=== PATIENT | female | born 1950 | race American Indian/Alaskan Native ===

== ENCOUNTER 2016-07-15 05:59 | Inpatient (IN) | payer OTHER ==
[2016-07-04 11:37] LABS: Basophils % (Auto) 0.8 % (0.0-1.8); Eosinophils % (Auto) 4.7 % (0.0-4.3); Hematocrit 35.2 % (30.3-42.9); Hemoglobin 10.8 gm/dl (10.1-14.3); Mean Corpuscular HGB Conc 31 % (30-34); Mean Corpuscular Volume 75 fl (79-97); Platelet Count 366 K/mm3 (140-440); Red Blood Count 4.72 M/mm3 (3.65-5.03); Red Cell Distribution Width 19.1 % (13.2-15.2); White Blood Count 8.6 K/mm3 (4.5-11.0)
--- NOTE | 2016-07-04 11:38 | Anesthesia Consultation ---
Anesthesia Consult and Med Hx Date of service: 07/15/16 - Airway ROM Head & Neck: Adequate Mental/Hyoid Distance: Adequate Mallampati Class: Class I Intubation Access Assessment: Good - Pulmonary Exam CTA: Yes - Cardiac Exam Cardiac Exam: RRR - Pre-Operative Health Status ASA Pre-Surgery Classification: ASA3 Proposed Anesthetic Plan: General - Pulmonary Hx Asthma: Yes (seasonal ) Hx Pneumonia: Yes - Cardiovascular System Hx Hypertension: Yes (10YRS) Hx Angina: Yes (CP AND SOB WITH ACTIVITY) Hx Cardia Arrhythmia: Yes (states has irregular tachy rhythm) Hx Heart Murmur: No - Endocrine Hx Non-Insulin Dependent Diabetes: Yes - Hematic Hx Anemia: Yes - Other Systems Hx Cancer: Yes Hx Obesity: Yes - Additional Comments Anesthesia Medical History Comments: Fibromyalgia
[2016-07-04 11:39] LABS: Mean Corpuscular Hemoglobin 23 pg (28-32)
[2016-07-04 11:54] LABS: Alanine Aminotransferase 10 units/L (7-56); Albumin 3.3 g/dL (3.9-5); Albumin/Globulin Ratio 0.8 %; Alkaline Phosphatase 101 units/L (35-129); Anion Gap 16 mmol/L; Bilirubin,Total 0.3 mg/dL (0.1-1.2); Blood Urea Nitrogen 8 mg/dL (7-17); Calcium 8.7 mg/dL (8.4-10.2); Carbon Dioxide 25 mmol/L (22-30); Chloride 99.2 mmol/L (98-107); Glucose 107 mg/dL (65-100); Potassium 3.9 mmol/L (3.6-5.0); Sodium 136 mmol/L (137-145); Total Protein 7.2 g/dL (6.3-8.2)
--- NOTE | 2016-07-12 14:38 | Admit Criteria Form ---
Admission Criteria Documentation: AMBULATORY SURGERY EXCEPTION CRITERIA Ambulatory Surgery Exception Criteria ( Place 'X' for any and all applicable criteria): Surgery or procedure performed on ambulatory basis may require inpatient stay for[A] ANY ONE of the following(1)(2)(3)(4)(5)(6)(7)(8)(9): [] I. A preoperative situation, condition, or finding that warrants inpatient stay as indicated by ANY ONE of the following: [] a) Inpatient care needed because of severity of a disease or condition rather than the surgery (eg, severe cardiac or respiratory disease, severe infection) (15) (16 ) (17) (18) [] b) Emergent procedure (eg, angioplasty for acute ischemia)(19) [] c) Complex surgical approach or situation as indicated by ANY ONE of the following(3): [] i) Open approach needed instead of usual endoscopic, transcatheter, or other less invasive procedure [] ii) Difficult approach because of previous operation [] iii) Airway monitoring required after open neck procedures(20)(21) [] iv) Large mass requiring unusually extensive dissection [] v) Additional complicating feature requiring inpatient care (eg, drain management)(22(23): [X] d) Major surgery in a pt with high anesthetic risk as indicated by ANY ONE of the following (2)(3)(5)(7)(8): [X] i) ASA risk class III or higher (severe systemic disease impairing function) [D] [] ii) Advanced age (eg, older than 85 years)(14)(24) [] iii) Symptomatic heart failure(25) [] iv) Symptomatic asthma or COPD(8)(21) [] v) Morbid obesity with hemodynamic or respiratory problems(20)( 21)(26)(27) [] vi) Obstructive sleep apnea(20)(21) [] vii) Former premature infants who are younger than 60 weeks [] viii) High risk for severe postoperative abnormalities (eg, severe postoperative hypocalcemia after parathyroidectomy for severe hyperparathyroidism)(27)( 28) [] ix) Unstable angina(25) [] e) Drug-related risk requiring inpatient stay as indicated by ANY ONE of the following(5)(10)(14)(32)(33) [] i) Procedure requires discontinuing drugs or other therapy (eg , antiarrhythmic medication, antiseizure medication), which necessitates inpatient observation or treatment.(18)(31) [] ii) Major surgery and high risk drug use as indicated by ANY ONE of the following: [] 1) Active abuse of cocaine or similar drug [] 2) Monoamine oxidase inhibitor use [] 3) Other drug identified as posing risk [] f) Inadequate outpatient care situation as indicated by ANY ONE of the following(5)(10)(14)(32)(33) [] i) Patient lives remote from medical facility and procedure has urgent complication potential, and temporary nearby residence cannot be arranged [] ii) Patient will have postprocedure incapacitation and inadequate assistance at home, or alternative level of care cannot be arranged. [] iii) Patient will have long general anesthesia or procedure side effect resolution time, and competent person to stay with patient on first postoperative night at home or alternative level of care cannot be arranged. []iv) Other inadequate outpatient situation that cannot be handled by other means [] II. A perioperative event, condition, or finding that warrants inpatient stay as indicated by ANY ONE of the following (1)(2)(3): [] a) Inadequate physiologic recovery: cardiovascular, respiratory, or hemodynamic status not normal or near preoperative baseline(18) [] b) Hemodynamic instability [] c) Patient not alert with near normal or baseline mental status [] d) Temperature not normal or as expected and not appropriate for outpatient treatment of condition [] e) Ambulatory or appropriate activity level status not yet achieved post procedure [E](34)(35)(36) [] f) Operative site not appropriate (eg, unexpected or excessive drainage or bleeding) [] g) Postoperative effects not resolved or adequately managed (eg, significant pain or vomiting not appropriate for outpatient or next level of care)(10)(12) [] h) Complicating features requiring inpatient care as indicated by ANY ONE of the following(37): [] i) Severe complications of procedure (eg, bowel injury, airway compromise, vascular injury,severe hemorrhage) [] ii) Extensive (eg, dissection far beyond usual scope of procedure ) or prolonged (eg, 120 minutes beyond usual) surgery needed requiring inpatient postoperative care [] iii) Conversion to an open or complex procedure that requires inpatient care (eg, open vs laparoscopic cholecystectomy, abdominal vs vaginal hysterectomy)(38) [] iv) Comorbid condition or test result identified during or post procedure that requires inpatient care (7) [] v) Malignant hyperthermia(30) [] vi) Other complicating feature requiring inpatient care(22)(23) Inpatient stay may be needed until ALL of the following are present (1)(2)(3)(4) (5)(6)(10)(14)(33)(40): []a) Physiologic recovery: cardiovascular, respiratory, and hemodynamic status normal or near preoperative baseline []b) Hemodynamic stability []c) Patient alert, with near normal or baseline mental status []d) Temperature appropriate: patient afebrile or temperature appropriate for outpt treatment of condition []e) Activity level appropriate: ambulatory or appropriate activity level post procedure []f) Operative site appropriate as indicated by ALL of the following: []i) Site dry or with expected drainage []ii) Any blood noted is as expected for procedure. []g) Postoperative effects resolved or managed as indicated by ALL of the following: []i) Pain management appropriate for outpatient (or next level of) care(10) []ii) Minimal nausea and vomiting: if present, successfully treated with oral medication(12) []iii) Headache, dizziness, or drowsiness (if present) are mild. []h) Voiding status acceptable as indicated by ANY ONE of the following: []i) Voiding spontaneously []ii) No voiding but instructions given for follow-up in 6 to 8 hours []iii) Urinary catheter in place, and instructions given for follow-up []i) Complicating features requiring inpatient care manageable at a lower level of care(37) []j) Comorbid conditions manageable at a lower level of care(37) The original [employer] content created by [employer] has been revised. The portions of the content which have been revised are identified through the use of italic text or in bold, and [employer] has neither reviewed nor approved the modified material. All other unmodified content is copyright [employer]. Please see references footnoted in the original [employer] edition 2016 Admission Criteria Met: Yes
[~2016-07-15 05:59] MED LIST: NACL 0.9% 1000 ML 1,000 ML IV SCH; PEPCID IV NR; VERSED IV NR
[2016-07-15] MEDS ORDERED: TRANSDERM-SCOP TD NR (07:00)
--- NOTE | 2016-07-15 07:01 | Anesthesia Day of Surgery ---
Anesthesia Day of Surgery - Day of Surgery Patient Examined: Yes Patient H&P Reviewed: Yes Patient is NPO: Yes Beta Blockers: Yes Cardiac Clearance: Yes Pulmonary Clearance: No
[2016-07-15] MEDS ORDERED: MARCAINE-EPI 0.5%-1:200,000 INFILTRATI ONE ×2 (07:03→08:12)
[2016-07-15] MEDS ORDERED: XYLOCAINE 1% 20 mL ONE (07:03)
[2016-07-15] MEDS ORDERED: DIPRIVAN 10 MG/ML IV ONE ×2 (07:12→07:35)
[2016-07-15] MEDS ORDERED: SUBLIMAZE ONE (07:12)
[2016-07-15] MEDS ORDERED: DECADRON ONE ×2 (07:12→07:43)
[2016-07-15] MEDS ORDERED: XYLOCAINE MPF 2% ONE (07:12)
[2016-07-15] MEDS ORDERED: ANCEF/STERILE WATER 2 GM/20 ML IV NR (07:25)
[2016-07-15] MEDS ORDERED: FLAGYL 500 MG/100 ML 500 MG/100 ML BAG IV NR (07:25)
[2016-07-15] MEDS ORDERED: PROAIR IH ONE (07:39)
[2016-07-15] MEDS ORDERED: ZOFRAN ONE ×2 (07:44→08:51)
[2016-07-15] MEDS ORDERED: ZOFRAN IV PRN ×2 (08:00→09:51)
[2016-07-15] MEDS ORDERED: DILAUDID ONE (08:06)
[2016-07-15] MEDS ORDERED: XYLOCAINE 1% 20 mL INFILTRATI ONE (08:12)
[2016-07-15] MEDS ORDERED: NACL 0.9% IR ONE ×2 (08:12)
[2016-07-15] MEDS ORDERED: NORMODYNE IV ONE (08:39)
[2016-07-15] MEDS ORDERED: ePHEDrine SULFATE ONE (08:42)
[2016-07-15] MEDS ORDERED: NACL 0.9% 1000 ML 1,000 ML ONE (08:48)
[2016-07-15] MEDS ORDERED: ROBINUL ONE (08:50)
[2016-07-15] MEDS ORDERED: NEOSTIGMINE ONE (08:51)
[2016-07-15] MEDS ORDERED: DILAUDID IV PRN (09:00)
[2016-07-15] MEDS ORDERED: MYLICON PO PRN (09:51)
[2016-07-15] MEDS ORDERED: APRESOLINE IV PRN (09:51)
--- NOTE | 2016-07-15 09:55 | Operative Report ---
Operative Report Operative Report: Operative Report DATE OF PROCEDURE: 07/16/16 PREOPERATIVE DIAGNOSES: Morbid obesity, hiatal hernia POSTOPERATIVE DIAGNOSES: 1.same as pre-op SURGEON: Joyce Bacon M.D. KENNEL HAND: Jitendra Ni MD PROCEDURE: 1. laparoscopic sleeve gastrectomy 2. laparoscopic hiatal hernia repair 3. EGD ANESTHESIA: General. ESTIMATED BLOOD LOSS: <5 mL. COMPLICATIONS: None. SPECIMEN: Partial gastrectomy. FINDINGS: 1. hiatal hernia INDICATION FOR PROCEDURE: Patient is a 66-year-old female with a long history of morbid obesity. She has tried multiple efforts at weight loss without longitudinal float operator success. She is here today for sleeve gastrectomy. PROCEDURE IN DETAIL: After consent was reviewed, patient was taken back to the operating room, where patient was placed supine on the bed with both arms out. The patient's legs were doubly strapped to the bed. Patient had a foot board in place. Patient had a body warmer placed by anesthesia. Patient was then prepped and draped in normal sterile surgical fashion. After a time-out was called. Prior to incision an EGD was performed that showed a normal esophagus, stomach and duodenum with the exception of a small hiatal hernia. I made a stab incision in the umbilicus and placed a Veress needle through this incision and insufflated the abdomen to 18 mmHg pressure. I then counted down a handsbreadth below the xiphoid process in the midline and slightly left lateral injected local anesthetic and made about 1.5 cm transverse incision. I then used a 12-mm Optiview trocar to enter into the abdomen. I then placed a 45-degree scope through this port and inspected the abdomen. There was no injury on entry of the abdomen. I then placed two 5-mm ports in the right upper quadrant, one along the anterior axillary line and 1 subxiphoid below the costovertebral angle. I then placed a 15-mm port about a handsbreadth left lateral and inferior to my anterior axillary port. I then placed left upper quadrant port along the anterior axillary line in a similar fashion. I then placed the liver retractor through the subxiphoid port and placed the patient in full reverse Trendelenburg. The right and left crura were skeletonized accentuating a small hiatal hernia. An anterior cruraplasty was perfromed with a figure-of-8 stitch using surgidac suture to reapproximate the crura. I then identified the pylorus and then counted off 6cm from the pylorus. I then used a LigaSure cutting device to enter into the lesser sac. At that point and then I took down the short gastrics all the way up to the left harjit. Then I had anesthesia pass down a 36-Egyptian bougie along the lesser curvature of the stomach. I made sure everything else was out of the abdomen except the bougie. I then created my gastric sleeve using a 60-mm laparoscopic stapler. A green load, followed by gold and then blue loads. The sleeve looked good without any twisting or torsion. I then had anesthesia to remove the bougie. Hemostasis was obtained along the staple line. I then used Tiseel along the entirety of the staple line and some on the liver. I then removed liver grasper and took it off the field. I then removed the stomach through the 15-mm port. I then closed that fascia with a #1 PDS in a [id number] fashion using a Victoriano-Ella. I then desufflated the abdomen and then removed all port sites. I then closed the incisions with 4-0 Monocryl in subcuticular fashion. I then dressed the wounds with Dermabond. Patient tolerated the procedure well and was transferred to recovery room in good and stable condition.
[2016-07-15] MEDS ORDERED: D50W (25GM) IV PRN (09:59)
[2016-07-15] MEDS ORDERED: ANCEF/NS 1 GM/50 ML 1 GM/50 ML BAG IV SCH (10:00)
[2016-07-15] MEDS: SUBLIMAZE IV PRN ×2 (10:05→10:25)
[2016-07-15] MEDS ORDERED: WATER FOR IRRIG STERILE IR ONE (10:39)
--- NOTE | 2016-07-15 10:56 | Post Anesthesia Evaluation ---
- Post Anesthesia Evaluation Patient Participated: Yes Airway Patent: Yes Stable Respiratory Function: Yes Nausea/Vomiting: No Temp > 96.8F: Yes Pain Manageable: Yes Adequeate Hydration: Yes Anesthesia Complications: No Block Receding Appropriately: Not Applicable Patient on Ventilator: No
[2016-07-15] MEDS: TORADOL IV SCH ×3 (11:41→22:00)
[2016-07-15] MEDS: LOVENOX SUB-Q SCH (11:42)
[2016-07-15] MEDS: DILAUDID IV PRN ×2 (12:07→21:07)
[2016-07-15] MEDS: FLAGYL 500 MG/100 ML 500 MG/100 ML BAG IV SCH ×2 (13:50→21:05)
[2016-07-15] MEDS: LACTATED RINGERS 1,000 ML IV SCH (14:57)
[2016-07-16] MEDS: DILAUDID IV PRN (01:12)
[2016-07-16] MEDS: TORADOL IV SCH (04:55)
[2016-07-16] MEDS: LACTATED RINGERS 1,000 ML IV SCH (04:59)
[2016-07-16] MEDS: FLAGYL 500 MG/100 ML 500 MG/100 ML BAG IV SCH (05:02)
[2016-07-16] MEDS ORDERED: NORCO PO PRN (06:00)
[2016-07-16] MEDS: LOVENOX SUB-Q SCH (09:50)
[2016-07-16 10:44] LABS: Basophils % (Auto) 0.2 % (0.0-1.8); Hematocrit 31.4 % (30.3-42.9); Hemoglobin 9.5 gm/dl (10.1-14.3); Mean Corpuscular HGB Conc 30 % (30-34); Mean Corpuscular Volume 75 fl (79-97); Platelet Count 346 K/mm3 (140-440); Red Blood Count 4.21 M/mm3 (3.65-5.03); White Blood Count 13.2 K/mm3 (4.5-11.0)
[2016-07-16 10:45] LABS: Mean Corpuscular Hemoglobin 23 pg (28-32); Red Cell Distribution Width 20.2 % (13.2-15.2)
[2016-07-16 11:06] LABS: Alanine Aminotransferase 21 units/L (7-56); Albumin 3.4 g/dL (3.9-5); Alkaline Phosphatase 97 units/L (35-129); Anion Gap 16 mmol/L; Bilirubin,Total 0.2 mg/dL (0.1-1.2); Blood Urea Nitrogen 12 mg/dL (7-17); Calcium 8.5 mg/dL (8.4-10.2); Carbon Dioxide 21 mmol/L (22-30); Chloride 105.5 mmol/L (98-107); Glucose 113 mg/dL (65-100); Potassium 3.7 mmol/L (3.6-5.0); Sodium 139 mmol/L (137-145); Total Protein 6.9 g/dL (6.3-8.2)
[2016-07-16 12:15] VITALS: BP 122/72
--- NOTE | 2016-07-16 12:15 | Discharge Summary ---
Providers - Providers Date of Admission: 07/15/16 05:59 Date of discharge: 07/16/16 Attending physician: BISHNU GARCIA Primary care physician: SAGE PALMA Hospitalization Reason for admission: Post op Observation Condition: Stable Procedures: Lap Sleeve Gastrectomy Disposition: DISCHARGED TO HOME OR SELFCARE Core Measure Documentation - Palliative Care Palliative Care/ Comfort Measures: Not Applicable - Core Measures Any of the following diagnoses?: none Exam - Physical Exam Narrative exam: NAD Lungs CTA BL Heart RRR Abd Soft, ND, Wounds c/d/i. appropriate incisional TTP AAOX3 - Constitutional Vitals: Temp Pulse Resp BP Pulse Ox 97.9 F 97 H 18 119/75 97 07/16/16 07:00 07/16/16 07:00 07/16/16 07:00 07/16/16 07:00 07/16/16 09:43 Plan Activity: advance as tolerated Diet: other (bariatric stage 1) Wound: keep clean and dry Special Instructions: no heavy lifting Follow up with: SAGE PALMA MD [Primary Care Provider] - 7 Days
== END 2016-07-16 12:45 | disposition home or self-care (01) | DRG 327 ==
LOC: 3A 05:59 → 2B-SURG 11:01
PROVIDERS: ADMIT Surgery; ATTEND Surgery
PROC: 0BQS4ZZ (ICD-10-PCS; principal; 2016-07-15)
PROC: 0BQR4ZZ (ICD-10-PCS; 2016-07-15)
PROC: 0DB64Z3 Excision of Stomach, Percutaneous Endoscopic Approach, Vertical (ICD-10-PCS; 2016-07-15)
DX: K44.9 Diaphragmatic hernia without obstruction or gangrene (principal); Z68.41 Body mass index [BMI] 40.0-44.9, adult; E66.01 Morbid (severe) obesity due to excess calories; J45.909 Unspecified asthma, uncomplicated; I10 Essential (primary) hypertension; E11.9 Type 2 diabetes mellitus without complications; Z71.3 Dietary counseling and surveillance; Z87.01 Personal history of pneumonia (recurrent)
CPT/HCPCS: 36415; 80053; 82962; 85025; 88307; A4217; C9250; J0360; J0690; J1100; J1170; J1650; J1885; J2250; J2405; J2704; J2710; J3010; J7030; J7120

== ENCOUNTER 2017-09-24 12:07 | Outpatient (CLI) | payer MEDICARE, OTHER | END 2017-09-24 12:08 | disposition home or self-care (01) | LOC: VAS 12:07 | PROVIDERS: ATTEND Podiatrist Foot & Ankle Surgery | DX: M79.661 Pain in right lower leg (principal); M79.89 Other specified soft tissue disorders; J45.909 Unspecified asthma, uncomplicated; I10 Essential (primary) hypertension; E11.9 Type 2 diabetes mellitus without complications; D64.9 Anemia, unspecified; Z90.710 Acquired absence of both cervix and uterus; Z82.49 Family history of ischemic heart disease and other diseases of the circulatory system ==

== ENCOUNTER 2018-07-10 13:15 | Emergency (ER) | payer MEDICARE, OTHER ==
--- NOTE | 2018-07-10 13:39 | Emergency Department Report ---
Chief Complaint: Abdominal Pain Stated Complaint: RT SIDE PAIN/STOMACH PAIN Time Seen by Provider: 07/10/18 13:34 - HPI History of Present Illness: This is a 68 y.o. female that presents to the ER with right flank and back pain since this morning. Admits to vomiting earlier. Denies diarrhea, urinary frequency, urgency, and dysuria. - Exam Vital Signs: Vital Signs 07/10/18 13:28 Temperature 98.5 F Pulse Rate 110 H Respiratory 16 Rate Blood Pressure 152/82 O2 Sat by Pulse 97 Oximetry MSE screening note: Focused history and physical exam performed. Due to findings the following was ordered: labs and CT of abdomen and pelvis. ACC for further evaluation. ED Disposition for MSE Condition: Stable Instructions: Abdominal Pain (ED)
[2018-07-10 14:13] LABS: Basophils # (Auto) 0.1 K/mm3 (0.0-0.1); Basophils % (Auto) 0.6 % (0.0-1.8); Eosinophils # (Auto) 0.5 K/mm3 (0.0-0.4); Eosinophils % (Auto) 6.1 % (0.0-4.3); Hematocrit 39.5 % (30.3-42.9); Hemoglobin 12.8 gm/dl (10.1-14.3); Lymphocytes # (Auto) 1.8 K/mm3 (1.2-5.4); Lymphocytes % (Auto) 20.5 % (13.4-35.0); Mean Corpuscular HGB Conc 32 % (30-34); Mean Corpuscular Hemoglobin 28 pg (28-32); Mean Corpuscular Volume 86 fl (79-97); Monocytes # (Auto) 0.8 K/mm3 (0.0-0.8); Monocytes % (Auto) 9.5 % (0.0-7.3); Platelet Count 283 K/mm3 (140-440); Red Blood Count 4.59 M/mm3 (3.65-5.03); Red Cell Distribution Width 16.1 % (13.2-15.2)
[2018-07-10] MEDS ORDERED: MORPHINE IV ONE (14:22)
[2018-07-10] MEDS ORDERED: NACL 0.9% 1000 ML 1,000 ML IV ONE ×2 (14:22→17:22)
[2018-07-10] MEDS ORDERED: ZOFRAN IV ONE (14:22)
[2018-07-10 14:34] LABS: Alanine Aminotransferase 10 units/L (7-56); Albumin 3.4 g/dL (3.9-5); BUN/Creatinine Ratio 11; Blood Urea Nitrogen 12 mg/dL (7-17); Calcium 9.4 mg/dL (8.4-10.2); Hemolysis Index 16
[2018-07-10 14:49] LABS: Bacteria,Urine 4+ /HPF (Negative); Bilirubin,Urine NEG (Negative); Blood,Urine MOD (Negative); Color,Urine Yellow (Yellow); Mucus,Urine FEW /HPF; Protein,Urine <15 mg/dL mg/dL (Negative); Urobilinogen,Urine < 2.0 mg/dL (<2.0)
--- NOTE | 2018-07-10 15:01 | Emergency Department Report ---
ED Abdominal Pain HPI - General Chief Complaint: Abdominal Pain Stated Complaint: RT SIDE PAIN/STOMACH PAIN Time Seen by Provider: 07/10/18 13:34 Source: patient Mode of arrival: Ambulatory Limitations: No Limitations - History of Present Illness Initial Comments: 68 y/o -[place] female presents to the emergency room for right abdominal pain all day. Patient states that the pain is severe she's had nausea and vomiting. She reports that is mostly on her right flank and her right lower quadrant. Patient denies any dysuria no urinary urgency or frequency. 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 She also is currently taking verapamil. Review of patient's past medical chart patient was taken metformin for borderline diabetes but has not taken it in a while. MD Complaint: abdominal pain (rlq), flank pain (r flank) -: This morning Location: RLQ, R flank Radiation: RLQ Severity: severe Severity scale (0 -10): 10 Quality: stabbing, sharp Consistency: constant Improves With: nothing Worsens With: movement Associated Symptoms: nausea, vomiting. denies: diarrhea, fever, constipation, dysuria, hematuria - Related Data Home Medications Medication Instructions Recorded Confirmed Last Taken Metformin HCl 500 mg PO DAILY 02/23/13 07/03/16 07/14/16 18:30 Aspirin [Adult Low Dose Aspirin EC] 81 mg PO DAILY 05/02/15 07/15/16 2 Weeks Ago ~07/01/16 Pravastatin [Pravachol] 40 mg PO QHS 05/02/15 07/03/16 07/14/16 18:30 Albuterol Sulfate [Albuterol 0.63% 0.63 mg IH PRN PRN 05/03/15 07/15/16 01/13/16 NEBS] Lansoprazole 30 mg PO DAILY 05/03/15 07/15/16 07/14/16 18:30 One Daily Multivitamin Tablet 1 tab PO DAILY 05/10/15 07/15/16 07/14/16 ALBUTEROL Inhaler (OR & NICU) 2 puff IH QID PRN 07/03/16 07/15/16 07/15/16 04:15 [Proair] Valsartan 80 mg PO QDAY 07/03/16 07/03/16 07/14/16 18:30 Verapamil HCl [Verapamil ER PM] 300 mg PO QHS 07/03/16 07/03/16 07/14/16 18:30 Previous Rx's Medication Instructions Recorded Last Taken Type HYDROcodone/ACETAMINOPHEN [Marshallberg 1 each PO Q6H PRN #12 tablet 07/10/18 Unknown Rx 5-325 Tablet] Ibuprofen [Motrin 800 MG tab] 800 mg PO Q8HR PRN #15 tablet 07/10/18 Unknown Rx Nitrofurantoin Monohyd/M-Cryst 100 mg PO BID #14 capsule 07/10/18 Unknown Rx [Macrobid 100 mg Capsule] Tamsulosin [Flomax] 0.4 mg PO QDAY #5 cap 07/10/18 Unknown Rx Allergies Allergy/AdvReac Type Severity Reaction Status Date / Time No Known Allergies Allergy Verified 07/10/18 13:17 ED Review of Systems ROS: Stated complaint: RT SIDE PAIN/STOMACH PAIN Other details as noted in HPI Comment: All other systems reviewed and negative Gastrointestinal: abdominal pain, nausea, vomiting Musculoskeletal: back pain, other (flank pain) Psychiatric: denies: anxiety, depression Hematological/Lymphatic: denies: easy bleeding, easy bruising ED Past Medical Hx - Past Medical History Hx Hypertension: Yes (10YRS) Hx Congestive Heart Failure: No Hx Diabetes: Yes Hx GERD: Yes (5 YRS) Hx Headaches / Migraines: Yes (MIGRAINES) Hx Asthma: Yes (seasonal ) Hx COPD: No Hx HIV: No - Surgical History Hx Cholecystectomy: Yes Additional Surgical History: hysterectomy, mastectomy - Social History Smoking Status: Never Smoker Substance Use Type: None - Medications Home Medications: Home Medications Medication Instructions Recorded Confirmed Last Taken Type Metformin HCl 500 mg PO DAILY 02/23/13 07/03/16 07/14/16 18:30 History Aspirin [Adult Low Dose Aspirin EC] 81 mg PO DAILY 05/02/15 07/15/16 2 Weeks Ago History ~07/01/16 Pravastatin [Pravachol] 40 mg PO QHS 05/02/15 07/03/16 07/14/16 18:30 History Albuterol Sulfate [Albuterol 0.63% 0.63 mg IH PRN PRN 05/03/15 07/15/16 01/13/16 History NEBS] Lansoprazole 30 mg PO DAILY 05/03/15 07/15/16 07/14/16 18:30 History One Daily Multivitamin Tablet 1 tab PO DAILY 05/10/15 07/15/16 07/14/16 History ALBUTEROL Inhaler (OR & NICU) 2 puff IH QID PRN 07/03/16 07/15/16 07/15/16 04:15 History [Proair] Valsartan 80 mg PO QDAY 07/03/16 07/03/16 07/14/16 18:30 History Verapamil HCl [Verapamil ER PM] 300 mg PO QHS 07/03/16 07/03/16 07/14/16 18:30 History HYDROcodone/ACETAMINOPHEN [Marshallberg 1 each PO Q6H PRN #12 tablet 07/10/18 Unknown Rx 5-325 Tablet] Ibuprofen [Motrin 800 MG tab] 800 mg PO Q8HR PRN #15 tablet 07/10/18 Unknown Rx Nitrofurantoin Monohyd/M-Cryst 100 mg PO BID #14 capsule 07/10/18 Unknown Rx [Macrobid 100 mg Capsule] Tamsulosin [Flomax] 0.4 mg PO QDAY #5 cap 07/10/18 Unknown Rx ED Physical Exam - General Limitations: No Limitations General appearance: alert, in no apparent distress - Head Head exam: Present: atraumatic, normocephalic - Eye Eye exam: Present: PERRL, EOMI - ENT ENT exam: Present: mucous membranes moist - Neck Neck exam: Present: normal inspection - Respiratory Respiratory exam: Present: normal lung sounds bilaterally. Absent: respiratory distress - Cardiovascular Cardiovascular Exam: Present: tachycardia - GI/Abdominal GI/Abdominal exam: Present: soft, tenderness. Absent: distended - Extremities Exam Extremities exam: Present: normal inspection, full ROM - Back Exam Back exam: Present: CVA tenderness (R) - Neurological Exam Neurological exam: Present: alert, oriented X3 - Psychiatric Psychiatric exam: Present: normal affect, normal mood - Skin Skin exam: Present: warm, dry, intact, normal color. Absent: rash ED Course Vital Signs 07/10/18 07/10/18 13:28 14:46 Temperature 98.5 F Pulse Rate 110 H Respiratory 16 18 Rate Blood Pressure 152/82 O2 Sat by Pulse 97 Oximetry ED Medical Decision Making - Lab Data Result diagrams: 07/10/18 14:01 07/10/18 14:01 - Radiology Data CT scan without contrast of abdomen and pelvis. Impression moderate right hydroureteronephrosis Pelvis stone in the right sacral ureter - Medical Decision Making Patient been evaluated by this provider ACC. Patient is given 2 L of fluid she's had morphine 4 mg Zofran 4 mg IV. Patient had Toradol 15 mg IV. Patient be discharged home with a referral to urologist she be placed on Macrobid 100 mg twice a day, ibuprofen 800 mg every 8 hours when necessary she'll be placed on Flomax 0.4 mg daily 5 days and Marshallberg 5 mg over 325 mg every 6 hours when necessary. Critical care attestation.: If time is entered above; I have spent that time in minutes in the direct care of this critically ill patient, excluding procedure time. ED Disposition Clinical Impression: Right kidney stone Disposition: DC-01 TO HOME OR SELFCARE Is pt being admited?: No Does the pt Need Aspirin: No Condition: Stable Instructions: Abdominal Pain (ED) Additional Instructions: Please take medication as prescribed. Follow up with the urologist I have listed one below for your convenience. Prescriptions: Tamsulosin [Flomax] 0.4 mg PO QDAY #5 cap Nitrofurantoin Monohyd/M-Cryst [Macrobid 100 mg Capsule] 100 mg PO BID #14 capsule Ibuprofen [Motrin 800 MG tab] 800 mg PO Q8HR PRN #15 tablet PRN Reason: Pain , Severe (7-10) HYDROcodone/ACETAMINOPHEN [Marshallberg 5-325 Tablet] 1 each PO Q6H PRN #12 tablet PRN Reason: Pain , Severe (7-10) Referrals: PRIMARY CAREMD [Primary Care Provider] - 3-5 Days KATIANA SAENZ MD [Staff Physician] - 3-5 Days Forms: Work/School Release Form(ED)
[2018-07-10] MEDS ORDERED: TORADOL IV ONE (16:47)
--- NOTE | 2018-07-10 17:21 | Cat Scan Report ---
PROCEDURE: CT ABDOMEN PELVIS WO CON HISTORY: right flank pain, r/o kidney stones FINDINGS: Unenhanced CT of the abdomen and pelvis was performed. There has been a left mastectomy. Th e lung bases appear clear. ABDOMEN: There is mild fatty infiltration of the liver. No focal hepatic lesion is seen. The spleen, adrenal glands, pancreas are unremarkable. There has been a cholecystectomy. There has been gastric surgery. There is moderate right hydroureteronephrosis. There is a left nonobstructing renal calculus, 0.6 cm. The abdominal aorta is normal in size. Pelvis: There is a stone in the right sacral ureter, 0.7 x 0.4 cm approximately 6 cm proximal to the right ur eterovesical junction. There is a normal appendix. There is no evidence of diverticulitis. There has been a hysterectomy. Th e urinary bladder is within normal limits. There is a vacuum disc with posterior disc bulge at L4-L5. This effaces the anterior margin of the th ecal sac and, with facet hypertrophy, results in mild canal stenosis. At L5-S1 there is a vacuum disc. There is a posterior disc bulge which abuts both S1 nerve roots in t he central canal. There is mild bilateral neural foraminal narrowing without nerve root impingement. IMPRESSION: ABDOMEN: Moderate right hydroureteronephrosis Pelvis: Stone in right sacral ureter This document is electronically signed by Saad Simpson MD., July 10 2018 05:19:13 PM ET
[2018-07-10 19:13] VITALS: BP 147/76
== END 2018-07-10 18:29 | disposition home or self-care (01) ==
LOC: ED 13:15
DX: N20.0 Calculus of kidney (principal); I10 Essential (primary) hypertension; E11.9 Type 2 diabetes mellitus without complications; K21.9 Gastro-esophageal reflux disease without esophagitis; G43.909 Migraine, unspecified, not intractable, without status migrainosus; J45.909 Unspecified asthma, uncomplicated; Z90.710 Acquired absence of both cervix and uterus
CPT/HCPCS: 36415; 74176; 80053; 81001; 85025; 96361; 96374; 96375; 99284; J1885; J2270; J2405; J7030

== ENCOUNTER 2019-01-21 09:35 | Outpatient (CLI) | payer MEDICARE, OTHER ==
--- NOTE | 2019-01-21 12:23 | Cat Scan Report ---
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 TECHNIQUE: Axial CT images were obtained through the chest after 100 cc of Omnipaque 300 IV contrast. Sagittal a nd coronal reformatted images. All CT scans at this location are performed using CT dose reduction fo r ALARA by means of automated exposure control. COMPARISON: None available. FINDINGS: HEART: No significant abnormality. THORACIC AORTA: No significant abnormality. MEDIASTINUM and EARNESTINE: No significant abnormality. LUNGS: No acute air space or interstitial disease. No pulmonary nodule or mass. PLEURA: No significant pleural effusion. No pneumothorax. SKELETAL SYSTEM: Moderate degenerative disc disease is identified throughout the thoracic spine. No s uspicious bony lesion is detected. ADDITIONAL FINDINGS: Left mastectomy changes. No recurrent chest wall mass. Right breast prosthesis i s noted and intact. IMPRESSION: No evidence for recurrent or metastatic disease in the chest. Signer Name: Armin Whitaker Jr, MD Signed: 01/21/2019 12:19 PM Workstation Name: [id number]
--- NOTE | 2019-01-21 12:30 | Cat Scan Report ---
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 Sagittal and coronal reformatted images. All CT scans at this location are performed using CT dose reduction for ALARA by means of automated exposure control. FINDINGS: CT ABDOMEN: Liver: Mild hepatic steatosis is unchanged. No suspicious liver mass or enlargement. Biliary: Gallbladder is surgically absent. Spleen: No significant abnormality. Unenlarged. Pancreas: No significant abnormality. Adrenals: No significant abnormality. Kidneys: The kidneys are normal size, contour and position. There appear to be a few calyceal stones in both kidneys. The previously described right ureteral stone is no longer seen. An 8.3 mm calculus is identified along the intramural portion of the left UVJ. There is minimal dilatation of the distal left ureter. No lucius hydronephrosis. No cystic disease or mass. Lymphatics: No lymphadenopathy. Vasculature: No significant abnormality. Bowel/Peritoneum: Gastric sleeve surgical changes are suspected. No evidence for bowel obstruction, m ass or focal inflammation. Mild diverticulosis of the distal colon is noted. Normal appendix. CT PELVIS: : Hysterectomy changes are evident. No adnexal abnormality. The bladder is partially empty. Previou sly noted stone at the left UVJ. Osseous Structures: Moderate to severe degenerative changes in the lower lumbar spine. No evidence fo r fracture or suspicious bony lesion. Additional Findings: None IMPRESSION: No evidence for metastatic disease to the abdomen or pelvis. Hepatic steatosis, stable. Bilateral renal calyceal stones. 8.3 mm stone at the left UVJ with minimal dilatation of the distal l eft ureter. Surgical changes as described. Lumbar spondylosis. Signer Name: Armin Whitaker Jr, MD Signed: 01/21/2019 12:26 PM Workstation Name: [id number]
--- NOTE | 2019-01-21 14:09 | Nuclear Medicine Report ---
CLINICAL DATA: Breast cancer restaging. TECHNICAL DATA: Following intravenous injection of 27.0 millicuries of 99m technetium MDP, three-hour delayed anterio r and posterior whole body skeletal phase images were obtained. FINDINGS: There is normal distribution of the radiopharmaceutical throughout the skeleton except for uptake in the thoracic and lumbar spine which is consistent with degenerative change at benign uptake in the sh oulders, knees and feet.. No suspicious focal increased or decreased activity. There is normal renal and bladder activity. IMPRESSION: Negative study with no suspicious finding. Signer Name: Shiva Renteria MD Signed: 01/21/2019 2:05 PM Workstation Name: [id number]
== END 2019-01-21 09:36 | disposition home or self-care (01) ==
LOC: NM 09:35
PROVIDERS: ATTEND Internal Medicine Hematology & Oncology
DX: C50.912 Malignant neoplasm of unspecified site of left female breast (principal); D64.9 Anemia, unspecified
CPT/HCPCS: 36415; 71260; 74177; 78306; 82565; 84520; A9503; Q9967